=== PATIENT | female | born 1995 | race Two or more races ===

== ENCOUNTER 2019-09-13 22:05 | Emergency (ER) | payer OTHER ==
[~2019-09-13] VITALS: Ht 152.4 cm; Wt 81.6 kg
--- NOTE | 2019-09-13 22:10 | NUR ---
C/C "THROAT IS CLOSING" X1HR, NKA, DENIES PAIN, 100% O2 SAT ON RA, pt aaox4, -sob, nad noted, vss ,pending md cartagena
[2019-09-13] MEDS ORDERED: methylPREDNISolone SOD SUCC 125 MG/2ML VIAL ONE (22:26)
[2019-09-13] MEDS ORDERED: KETOROLAC TROMETHAMINE INJ 30 MG/ML VIAL ONE (22:26)
[2019-09-13] MEDS ORDERED: methylPREDNISolone SOD SUCC 125 MG/2ML VIAL IV ONE (22:30)
[2019-09-13] MEDS ORDERED: KETOROLAC TROMETHAMINE INJ 30 MG/ML VIAL IV ONE (22:30)
[2019-09-13] MEDS ORDERED: IV NS 0.9% 1,000 ML BAG IV ONE (22:30)
[2019-09-13 22:35] LABS: HEMATOCRIT 40 % (33-45); HEMOGLOBIN 13.5 g/dL (11.5-14.8); MEAN CORPUSCULAR VOLUME 83 fL (82-100); RED BLOOD CELL COUNT(AUTO) 4.79 MIL/uL (4.0-5.2); WHITE BLOOD COUNT (AUTO) 12.2 K/uL (4.3-11.0)
[2019-09-13 22:37] LABS: BASOPHILS % (AUTO) 0.2 % (0.0-2.0); EOSINOPHILS % (AUTO) 0.1 % (0.0-6.0); LYMPHOCYTES # (AUTO) 1.1 /CMM (0.8-4.8); LYMPHOCYTES % (AUTO) 9.2 % (20.0-44.0); MEAN CORPUSCULAR HGB CONC 34 g/dl (31.0-36.0); MONOCYTES # (AUTO) 0.5 /CMM (0.1-1.30); MONOCYTES % (AUTO) 3.8 % (2.0-12.0); NEUTROPHILS # (AUTO) 10.6 /CMM (1.8-8.9); NEUTROPHILS % (AUTO) 86.7 % (43.0-81.0); PLATELET COUNT (AUTO) 359 /CMM (150-450)
[2019-09-13 22:43] LABS: CALCIUM, SERUM 9.3 mg/dL (8.5-10.1); CREATININE 0.5 mg/dL (0.6-1.3); POTASSIUM 3.8 mmol/L (3.5-5.1)
[2019-09-14] MEDS ORDERED: LORAZEPAM INJ 2 MG/ML VIAL ONE (00:34)
[2019-09-14] MEDS ORDERED: LORAZEPAM INJ 2 MG/ML VIAL IV ONE (01:00)
[2019-09-14 01:36] VITALS: BP 112/76
--- NOTE | 2019-09-14 01:36 | NUR ---
Patient discharged to home in stable condition. Written and verbal after care instructions given. Patient verbalizes understanding of instruction.
== END 2019-09-14 01:36 | disposition home or self-care (01) ==
LOC: ER 22:08
DX: J04.0 Acute laryngitis (principal); Z98.890 Other specified postprocedural states
CPT/HCPCS: 36415; 70490; 80048; 85025; 96374; 96375; 99284; J2060; J2930; J7030; J1885

== ENCOUNTER 2019-09-20 23:48 | Emergency (ER) | payer OTHER ==
[~2019-09-20] VITALS: Ht 162.6 cm; Wt 81.6 kg
--- NOTE | 2019-09-20 23:54 | NUR ---
24/f bibself from home c/o swollen tongue and difficulty swolling since Saturday, which has gotten worse today. Denies having sob. pt states that she has been here at [facility] just this past Saturday & received prednisone for the swelling. pt is a/ox4, verbal, able to make needs known. vs stable. pt resting in bed, waiting to be seen by .
--- NOTE | 2019-09-21 | NUR ---
pt being seen by MD at bedside
--- NOTE | 2019-09-21 00:30 | NUR ---
Patient discharged to home in stable condition. Written and verbal after care instructions given. Patient verbalizes understanding of instruction. Pt left facility on foot with steady gait. No s/s of acute distress or sob noted. No iv access. vs stable.
[2019-09-21 00:31] VITALS: BP 136/72
== END 2019-09-21 00:32 | disposition home or self-care (01) ==
LOC: ER 23:51
DX: F45.8 Other somatoform disorders (principal); Z98.890 Other specified postprocedural states

== ENCOUNTER 2020-04-19 21:12 | Emergency (ER) | payer OTHER ==
[~2020-04-19] VITALS: Ht 152.4 cm; Wt 86.2 kg
--- NOTE | 2020-04-19 21:20 | NUR ---
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 PT TOOK 50 MG BENADRYL 15 MINS AGO W/ MINIMAL RELIEF. STRIDOR NOTED. SATTING 100% RA. PT CONNECTED TO THE [employer]W BOSS AND POX.
[2020-04-19] MEDS ORDERED: IV NS 0.9% 1,000 ML BAG IV ONE (21:30)
[2020-04-19] MEDS ORDERED: ALBUTEROL FS 2.5 MG/3 ML VIAL.NEB NEB ONE (21:30)
[2020-04-19] MEDS ORDERED: EPINEPHRINE (1:1000) MDV 30 MG/30ML VIAL SUBCUT ONE (21:30)
[2020-04-19] MEDS ORDERED: FAMOTIDINE/PF INJ 20 MG/2 ML VIAL IV ONE ×2 (21:30→21:38)
[2020-04-19] MEDS ORDERED: IPRATROPIUM NEB FS 0.5 MG/2.5 ML AMPUL.NEB NEB ONE (21:30)
[2020-04-19] MEDS ORDERED: methylPREDNISolone SOD SUCC 125 MG/2ML VIAL IV ONE (21:30)
[2020-04-19] MEDS ORDERED: EPINEPHRINE (1:1000) 1 MG/ML AMPUL ONE (21:38)
[2020-04-19] MEDS ORDERED: methylPREDNISolone SOD SUCC 125 MG/2ML VIAL ONE (21:38)
[2020-04-19] MEDS ORDERED: ALBUTEROL FS 2.5 MG/3 ML VIAL.NEB ONE (21:41)
[2020-04-19] MEDS ORDERED: IPRATROPIUM NEB FS 0.5 MG/2.5 ML AMPUL.NEB ONE (21:41)
--- NOTE | 2020-04-19 22:00 | NUR ---
RT AT BEDSIDE
--- NOTE | 2020-04-19 22:20 | NUR ---
PT'S RIDE WILL WAIT IN CAR. SHANIQUE (BOYFRIEND) [phone]
[2020-04-19 23:02] VITALS: BP 121/48
--- NOTE | 2020-04-19 23:02 | NUR ---
Patient discharged to home in stable condition. Written and verbal after care instructions given. Patient verbalizes understanding of instruction.pt. ambulatory with a steady gait
== END 2020-04-19 23:03 | disposition home or self-care (01) ==
LOC: ER 21:15
DX: T78.2XXA Anaphylactic shock, unspecified, initial encounter (principal); Z98.890 Other specified postprocedural states; Z91.010 Allergy to peanuts
CPT/HCPCS: 94644; 96372; 96374; 96375; 99285; J0171 ×2; J2930; J3490; J7030

== ENCOUNTER 2020-09-21 12:22 | Emergency (ER) | payer OTHER ==
[~2020-09-21] VITALS: Ht 152.4 cm; Wt 86.2 kg
[2020-09-21 12:27] VITALS: BP 115/71
--- NOTE | 2020-09-21 13:53 | NUR ---
covid test done & sent to lab
--- NOTE | 2020-09-21 13:53 | NUR ---
Patient discharged to home in stable condition. Written and verbal after care instructions given. Patient verbalizes understanding of instruction.
== END 2020-09-21 13:54 | disposition home or self-care (01) ==
LOC: ER 12:30
DX: B34.9 Viral infection, unspecified (principal); Z20.828 Contact with and (suspected) exposure to other viral communicable diseases; Z98.84 Bariatric surgery status; Z91.010 Allergy to peanuts
CPT/HCPCS: 99283; C9803; U0003